=== PATIENT | female | born 1995 | race Caucasian/White ===

== ENCOUNTER 2016-12-06 17:01 | Emergency (ER) | payer OTHER ==
[~2016-12-06] VITALS: Ht 160 cm; Wt 61.2 kg
[~2016-12-06 17:01] MED LIST: DOXYCYCLINE HY100 MG PO; IBUPROFEN800 MG PO; METROGEL-VAGINA70 GM VG; MOTRIN800 MG PO; OXYCODONE HCL5 MG PO; PERCOCET 5/31 TABLET PO; TUMS500 MG PO; VENTOLIN HFA18 GM IH; ZOFRAN ODT4 MG PO
[2016-12-06] MEDS ORDERED: PRENATAL TABLE1 EAC3 PO (19:02)
[2016-12-06 19:51] VITALS: BP 114/64
== END 2016-12-06 19:52 | disposition home or self-care (01) ==
LOC: EME 17:01
DX: Z32.01 Encounter for pregnancy test, result positive (principal); Z88.8 Allergy status to other drugs, medicaments and biological substances
CPT/HCPCS: 84702; 99281; 99283

== ENCOUNTER 2017-02-25 18:36 | Emergency (ER) | payer OTHER ==
[~2017-02-25] VITALS: Ht 157.5 cm; Wt 60.1 kg
[~2017-02-25 18:36] MED LIST changes: +PRENATAL TABLE1 EAC3 PO
[2017-02-25 19:57] LABS: ADD MIUA? YES; BILIRUBIN NEGATIVE; BLOOD NEGATIVE; COLOR YELLOW ((YELLOW)); GLUCOSE (STRIP) NEGATIVE; KETONES NEGATIVE; LEUKOCYTES SMALL; NITRITE NEGATIVE; PROTEIN (STRIP) NEGATIVE; SPECIFIC GRAVITY 1.024 (1.000-1.030); UROBILINOGEN 0.2 MG/DL (0.2-1.0)
[2017-02-25 20:10] LABS: HEMATOCRIT 34.3 % (36.0-46.0); MCHC 34.4 G/DL (30.0-36.0); MEAN PLAT.VOLUME 10.6 uM^3 (9.5-12.4); PLATELET COUNT 216 K/uL (156-360); RBC DIS.WIDTH-CV 11.8 % (11.8-14.6); RBC DIS.WIDTH-SD 38.5 % (39-53); RED BLOOD COUNT 3.81 M/uL (3.80-5.20); WHITE BLOOD COUNT 9.2 K/uL (4.1-10.2)
[2017-02-25 20:17] LABS: BACTERIA RARE /HPF; EPITHELIAL CELLS 1+ /HPF; MUCUS 2+ /LPF; RED BLOOD CELLS 0-5 /HPF (0-5); UCUL ADDED? NO
[2017-02-25 20:31] LABS: CHLORIDE 110 mEq/L (99-109); POTASSIUM 4.2 mEq/L (3.7-5.4); SODIUM 136 mEq/L (136-147)
[2017-02-25 20:33] LABS: GLUCOSE 105 mg/dL (70-99)
[2017-02-25 20:34] LABS: ANION GAP 6 MEQ/L (2-14)
[2017-02-25 20:35] LABS: TOTAL BILIRUBIN 0.2 mg/dL (0.0-1.0)
[2017-02-25 20:36] LABS: ALKALINE PHOSPHATASE 36 IU/L (3-129)
[2017-02-25 20:37] LABS: GFR ESTIMATE (CALCULATED) > 59 mL/min/
[2017-02-25 20:38] LABS: UREA NITROGEN (BUN) 8 mg/dL (9-23)
[2017-02-25 20:49] LABS: QUANTITATIVE HCG 28777.8 MIU/ML
[2017-02-25 21:32] VITALS: BP 109/66
== END 2017-02-25 21:32 | disposition home or self-care (01) ==
LOC: EME 18:36
DX: O26.892 Other specified pregnancy related conditions, second trimester (principal); R10.9 Unspecified abdominal pain; Z87.891 Personal history of nicotine dependence
CPT/HCPCS: 80053; 81003; 84702; 85027; 99281; 99283

== ENCOUNTER 2017-04-30 23:32 | Outpatient (CLI) | payer OTHER ==
[2017-04-30 23:50] VITALS: BP 115/58
[2017-05-01 01:27] VITALS: BP 113/56
[2017-05-01 02:30] LABS: ADD MIUA? YES; BILIRUBIN NEGATIVE; BLOOD NEGATIVE; COLOR YELLOW ((YELLOW)); GLUCOSE (STRIP) NEGATIVE; KETONES NEGATIVE; LEUKOCYTES SMALL; NITRITE NEGATIVE; PROTEIN (STRIP) NEGATIVE; SPECIFIC GRAVITY 1.024 (1.000-1.030); UROBILINOGEN 0.2 MG/DL (0.2-1.0)
[2017-05-01 02:39] LABS: BACTERIA NONE SEEN /HPF; EPITHELIAL CELLS 1+ /HPF; HYALINE CASTS 0-5 /LPF; MUCUS TRACE /LPF; RED BLOOD CELLS 0-5 /HPF (0-5); UCUL ADDED? YES
[2017-05-01 02:46] VITALS: BP 114/55
[2017-05-01 05:56] VITALS: BP 101/51
== END 2017-05-01 06:11 | disposition home or self-care (01) ==
LOC: LDRP-OP 23:32 → 2WEST 23:33
PROVIDERS: Obstetrics & Gynecology Gynecology
DX: O60.02 Preterm labor without delivery, second trimester (principal); O09.212 Supervision of pregnancy with history of pre-term labor, second trimester; Z3A.24 24 weeks gestation of pregnancy
CPT/HCPCS: 59025; 76815; 81003; 87086; G0378; J3105; J7120

== ENCOUNTER 2017-06-02 11:06 | Outpatient (CLI) | payer OTHER ==
[2017-06-02 11:29] VITALS: BP 119/62
[2017-06-02 12:40] LABS: ADD MIUA? YES; BILIRUBIN NEGATIVE; BLOOD NEGATIVE; COLOR YELLOW ((YELLOW)); GLUCOSE (STRIP) NEGATIVE; KETONES NEGATIVE; LEUKOCYTES MODERATE; NITRITE NEGATIVE; PROTEIN (STRIP) NEGATIVE; SPECIFIC GRAVITY 1.021 (1.000-1.030); UROBILINOGEN 0.2 MG/DL (0.2-1.0)
[2017-06-02 12:54] LABS: BACTERIA RARE /HPF; EPITHELIAL CELLS 1+ /HPF; MUCUS 1+ /LPF; UCUL ADDED? YES; WHITE BLOOD CELLS 15-20 /HPF (0-5)
[2017-06-04 13:39] LABS: CHLAMYDIA TRACHOMATIS NEGATIVE; NEISSERIA GONORRHOEAE NEGATIVE
== END 2017-06-02 13:40 | disposition home or self-care (01) ==
LOC: LDRP-OP 11:06 → 2WEST 11:07 → LDRP-OP 09-15 06:22
PROVIDERS: Nurse Practitioner
DX: O99.283 Endocrine, nutritional and metabolic diseases complicating pregnancy, third trimester (principal); E86.0 Dehydration; O99.343 Other mental disorders complicating pregnancy, third trimester; F41.9 Anxiety disorder, unspecified; O99.513 Diseases of the respiratory system complicating pregnancy, third trimester; J45.909 Unspecified asthma, uncomplicated; Z3A.29 29 weeks gestation of pregnancy
CPT/HCPCS: 59025; 81003; 87086; 87491; 87591; G0378

== ENCOUNTER 2017-07-04 12:22 | Emergency (ER) | payer OTHER ==
[~2017-07-04] VITALS: Ht 157.5 cm; Wt 67.2 kg
[2017-07-04 14:00] LABS: HEMATOCRIT 35.4 % (36.0-46.0); MCH 31.1 PG (29.0-34.0); MCHC 33.6 G/DL (30.0-36.0); MCV 92.4 FL (83-99); MEAN PLAT.VOLUME 10.6 uM^3 (9.5-12.4); PLATELET COUNT 185 K/uL (156-360); RBC DIS.WIDTH-CV 12.5 % (11.8-14.6); RBC DIS.WIDTH-SD 42.1 % (39-53); RED BLOOD COUNT 3.83 M/uL (3.80-5.20); WHITE BLOOD COUNT 14.9 K/uL (4.1-10.2)
[2017-07-04 14:10] LABS: CHLORIDE 105 mEq/L (99-109); POTASSIUM 3.8 mEq/L (3.7-5.4); SODIUM 136 mEq/L (136-147)
[2017-07-04 14:12] LABS: GLUCOSE 90 mg/dL (70-99)
[2017-07-04 14:14] LABS: ANION GAP 10 MEQ/L (2-14); TOTAL BILIRUBIN 0.4 mg/dL (0.0-1.0)
[2017-07-04 14:16] LABS: ALKALINE PHOSPHATASE 120 IU/L (3-129); GFR ESTIMATE (CALCULATED) > 59 mL/min/
[2017-07-04 14:17] LABS: UREA NITROGEN (BUN) 8 mg/dL (9-23)
[2017-07-04 15:30] LABS: ADD MIUA? YES; BILIRUBIN NEGATIVE; BLOOD NEGATIVE; COLOR YELLOW ((YELLOW)); GLUCOSE (STRIP) NEGATIVE; KETONES 80; LEUKOCYTES MODERATE; NITRITE NEGATIVE; PROTEIN (STRIP) 30; SPECIFIC GRAVITY 1.028 (1.000-1.030); UROBILINOGEN 0.2 MG/DL (0.2-1.0)
[2017-07-04 15:40] LABS: BACTERIA RARE /HPF; EPITHELIAL CELLS 1+ /HPF; MUCUS 3+ /LPF; UCUL ADDED? YES; WHITE BLOOD CELLS 20-30 /HPF (0-5)
[2017-07-04 16:15] LABS: AMPHETAMINE NEGATIVE (500 ng/mL); BARBITURATES NEGATIVE (200 ng/mL); BENZODIAZEPINES NEGATIVE (150 ng/mL); COCAINE NEGATIVE (150 ng/mL); INTERNAL CONTROLS VALID? YES; METHADONE NEGATIVE (200 ng/mL); METHAMPHETAMINE NEGATIVE (500 ng/mL); OPIATES (MORPHINE) NEGATIVE (100 ng/mL); OXYCODONE NEGATIVE (100 ng/mL); PHENCYCLIDINE NEGATIVE (25 ng/mL); PROPOXYPHENE NEGATIVE (300 ng/mL); THC CANNABINOIDS NEGATIVE (50 ng/mL); TRICYCLIC ANTIDEPRESSANTS NEGATIVE (300 ng/mL)
[2017-07-04] MEDS ORDERED: KEFLEX500 MG PO (16:28)
[2017-07-04] MEDS ORDERED: REGLAN5 MG PO (16:29)
[2017-07-04] MEDS ORDERED: IMITREX25 MG PO (16:29)
[2017-07-04 16:41] VITALS: BP 93/53
== END 2017-07-04 16:43 | disposition home or self-care (01) ==
LOC: EME 12:22
PROVIDERS: Nurse Practitioner Family
DX: O23.43 Unspecified infection of urinary tract in pregnancy, third trimester (principal); O26.893 Other specified pregnancy related conditions, third trimester; R51 Headache; Z3A.34 34 weeks gestation of pregnancy; O99.333 Smoking (tobacco) complicating pregnancy, third trimester; F17.200 Nicotine dependence, unspecified, uncomplicated
CPT/HCPCS: 80053; 81003; 85027; 87086; 99281; 99285; J2765; J7040

== ENCOUNTER 2017-08-05 12:37 | Inpatient (IN) | payer OTHER ==
[2017-08-05] VITALS (18 sets, daily range): BP systolic 107–159; BP diastolic 56–109
[~2017-08-05] VITALS: Ht 160 cm; Wt 70.9 kg
[~2017-08-05 12:37] MED LIST changes: +IMITREX25 MG PO; +KEFLEX500 MG PO; +REGLAN5 MG PO
[2017-08-05 13:50] LABS: EOSINOPHIL (%) 0.4 % (0-5); EOSINOPHIL COUNT 0.1 K/uL (0-0.3); HEMATOCRIT 37.1 % (36.0-46.0); IMMATURE GRANULOCYTE (%) 1.6 % (0.0-0.7); IMMATURE GRANULOCYTE COUNT 0.2 K/uL; INSTRUMENT ABS NEUTROPHIL CT 10.3 K/uL; LYMPHOCYTE COUNT 2.2 K/uL (1.0-2.8); MCH 30.5 PG (29.0-34.0); MCHC 32.9 G/DL (30.0-36.0); MCV 92.8 FL (83-99); MEAN PLAT.VOLUME 11.6 uM^3 (9.5-12.4); MONOCYTE (%) 5.5 % (3-12); MONOCYTE COUNT 0.8 K/uL (0-0.8); NEUTROPHIL (%) 76.2 % (45-76); NEUTROPHIL COUNT 10.3 K/uL (1.8-6.4); PLATELET COUNT 187 K/uL (156-360); RBC DIS.WIDTH-CV 13.3 % (11.8-14.6); RBC DIS.WIDTH-SD 45.1 % (39-53); WHITE BLOOD COUNT 13.6 K/uL (4.1-10.2)
[2017-08-05 15:21] LABS: AMPHETAMINES QUANT VALUE 0 NG/ML; BARBITUATES QUANT VALUE 0 NG/ML; BENZODIAZEPINES QUANT VALUE 0 NG/ML; BENZODIAZEPINES, URINE SCREEN Negative (200 ng/mL); MARIJUANA QUANT VALUE 0 NG/ML; OPIATES QUANTITATIVE VALUE 0 NG/ML; PHENCYCLIDINE QUANT VALUE 0 NG/ML
[2017-08-05] MEDS ORDERED: MOTRIN800 MG PO (23:23)
[2017-08-06 00:01] VITALS: BP 106/55
[2017-08-06 00:52] VITALS: BP 131/88
[2017-08-06 01:52] VITALS: BP 150/63
[2017-08-06 08:00] VITALS: BP 125/70
[2017-08-06 15:12] VITALS: BP 119/57
[2017-08-06 23:00] VITALS: BP 102/51
[2017-08-07] MEDS ORDERED: PERCOCET 5/31 TABLET PO (10:52)
== END 2017-08-07 15:30 | disposition home or self-care (01) | DRG 775 ==
LOC: LDRP-OP 12:37 → 2WEST 12:38 → LDRP-OP 09-15 01:28
PROVIDERS: Nurse Practitioner
DX: O42.92 Full-term premature rupture of membranes, unspecified as to length of time between rupture and onset of labor (principal); O99.344 Other mental disorders complicating childbirth; F41.9 Anxiety disorder, unspecified; Z37.0 Single live birth; Z3A.38 38 weeks gestation of pregnancy; O99.52 Diseases of the respiratory system complicating childbirth; J45.909 Unspecified asthma, uncomplicated; R63.3 Feeding difficulties; O99.284 Endocrine, nutritional and metabolic diseases complicating childbirth; E86.0 Dehydration
CPT/HCPCS: 80306 90; 85025; J3010; J7120